=== PATIENT | male | born 1985 | race Caucasian/White ===

== ENCOUNTER 2016-12-21 16:18 | Emergency (ER) | payer BC ==
--- NOTE | 2016-12-21 16:54 | ERPHSYRPT ---
- History of Present Illness Time Seen by Provider: 12/21/16 16:48 Source: patient Exam Limitations: no limitations Patient Subjective Stated Complaint: Pt states "I woke up this morning and the back of my throat hurts, up near my nose." Triage Nursing Assessment: pt alert and oriented X 3, skin pwd pt speaking clearly, sounds like nose is congested, walks upright without any difficulty. Physician History: The patient is a 31-year-old male who woke up this morning with a sore throat. He denies fever or chills. He denies cough. 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 He wants a work excuse for today. His past medical history is significant for a staph infection. Timing/Duration: gradual onset Severity: moderate ENT Location: throat Prearrival Treatment: no prearrival treatment Modifying Factors: Improves With: activity Associated Symptoms: sore throat, voice change, No fever Allergies/Adverse Reactions: No Known Drug Allergies Allergy (Unverified 12/21/16 16:31) Home Medications: No Reportable Medications [No Reported Medications] 12/21/16 [History] Hx Tetanus, Diphtheria Vaccination/Date Given: Yes Hx Influenza Vaccination/Date Given: No Hx Pneumococcal Vaccination/Date Given: No Immunizations Up to Date: Yes - Review of Systems Constitutional: No Fever, No Chills Eyes: No Symptoms Ears, Nose, & Throat: Throat Pain, Hoarse Respiratory: No Cough, No Dyspnea Cardiac: No Chest Pain, No Edema, No Syncope Abdominal/Gastrointestinal: No Abdominal Pain, No Nausea, No Vomiting, No Diarrhea Genitourinary Symptoms: No Dysuria Musculoskeletal: No Back Pain, No Neck Pain Skin: No Rash Neurological: No Dizziness, No Focal Weakness, No Sensory Changes Psychological: No Symptoms Endocrine: No Symptoms Hematologic/Lymphatic: No Symptoms Immunological/Allergic: No Symptoms All Other Systems: Reviewed and Negative - Past Medical History Pertinent Past Medical History: No - Past Surgical History Past Surgical History: Yes Neuro Surgical History: No Pertinent History Cardiac: No Pertinent History Respiratory: No Pertinent History Gastrointestinal: No Pertinent History Genitourinary: No Pertinent History Musculoskeletal: Other Male Surgical History: No Pertinent History Other Surgical History: left ankle surgery - Social History Smoking Status: Current every day smoker How long have you smoked: years Exposure to second hand smoke: Yes Drug Use: none Patient Lives Alone: No - Nursing Vital Signs Nursing Vital Signs: Initial Vital Signs Temperature 99.1 F 12/21/16 16:24 Pulse Rate 80 12/21/16 16:24 Respiratory Rate 18 12/21/16 16:24 Blood Pressure 136/71 12/21/16 16:24 O2 Sat by Pulse Oximetry 97 12/21/16 16:24 Pain Scale Pain Intensity 4 - Physical Exam General Appearance: no apparent distress, alert Eye Exam: bilateral eye: PERRL, EOMI Nasal Exam: normal inspection Throat Exam: moist mucus membranes, pharynx swelling, No tonsillar exudate Neck Exam: supple Cardiovascular/Respiratory Exam: normal breath sounds, regular rate/rhythm Abdominal Exam: non-tender, soft Neurologic Exam: alert, oriented x 3, sensation nml, No motor deficits Skin Exam: normal color, warm, dry SpO2: 97 Oxygen Delivery: Room Air Ordered Tests: Active Orders 24 hr Category Date Time Status CULTURE, THROAT Stat Lab 12/21/16 17:18 Received STREP SCREEN-BETA A Stat Lab 12/21/16 17:18 Completed Lab/Rad Data: Laboratory Results 12/21/16 Range/Units 17:18 Streptococcus Screen NEGATIVE (Negative) - Progress Progress: unchanged Counseled pt/family regarding: lab results, diagnosis - Departure Time of Disposition: 17:28 Departure Disposition: Home Clinical Impression: Pharyngitis Condition: Stable Critical Care Time: No Additional Instructions: You have viral pharyngitis. The rapid strep test was negative in the ER. Take Tylenol and ibuprofen as needed. Follow-up as needed.
[2016-12-21 17:20] VITALS: BP 102/68; PULSE 64
[2016-12-21 17:30] VITALS: O2SAT 97
== END 2016-12-21 17:34 | disposition home or self-care (01) ==
LOC: ED 16:18
DX: J02.9 Acute pharyngitis, unspecified (principal)
CPT/HCPCS: 87070; 87430; 99282

== ENCOUNTER 2017-06-27 21:55 | Emergency (ER) | payer SELFPAY ==
[2017-06-27] MEDS ORDERED: TORAdol 30 mg Injection IM ONE (22:25)
--- NOTE | 2017-06-27 22:25 | ERPHSYRPT ---
- History of Present Illness Time Seen by Provider: 06/27/17 22:15 Source: patient Exam Limitations: no limitations Physician History: The patient is a 32-year-old male with his complaining of intermittent pain in his left TMJ since last or 4 days ago. He had pain on but the pain resolved until Tuesday. It then resolved again until today. He has taken nothing for the pain. He denies any recent trauma. It hurts to open his mouth widely and to close it hard on food. He has no local doctor. His past medical history is unremarkable. He takes no medicines. Timing/Duration: day(s) (4), intermittent, worse Severity: moderate Modifying Factors: Improves With: eating, movement Associated Symptoms: denies symptoms Allergies/Adverse Reactions: No Known Drug Allergies Allergy (Verified 06/27/17 22:20) Hx Tetanus, Diphtheria Vaccination/Date Given: Yes Hx Influenza Vaccination/Date Given: No Hx Pneumococcal Vaccination/Date Given: No - Review of Systems Constitutional: No Fever, No Chills Eyes: No Symptoms Ears, Nose, & Throat: Other (jaw pain) Respiratory: No Cough, No Dyspnea Cardiac: No Chest Pain, No Edema, No Syncope Abdominal/Gastrointestinal: No Abdominal Pain, No Nausea, No Vomiting, No Diarrhea Genitourinary Symptoms: No Dysuria Musculoskeletal: No Back Pain, No Neck Pain Skin: No Rash Neurological: No Dizziness, No Focal Weakness, No Sensory Changes Psychological: No Symptoms Endocrine: No Symptoms Hematologic/Lymphatic: No Symptoms Immunological/Allergic: No Symptoms All Other Systems: Reviewed and Negative - Past Medical History Pertinent Past Medical History: No - Past Surgical History Past Surgical History: Yes Neuro Surgical History: No Pertinent History Cardiac: No Pertinent History Respiratory: No Pertinent History Gastrointestinal: No Pertinent History Genitourinary: No Pertinent History Musculoskeletal: Other Male Surgical History: No Pertinent History Other Surgical History: left ankle surgery - Social History Smoking Status: Current every day smoker How long have you smoked: years Exposure to second hand smoke: Yes Drug Use: none Patient Lives Alone: No - Nursing Vital Signs Nursing Vital Signs: Initial Vital Signs Temperature 99.0 F 06/27/17 22:07 Pulse Rate 60 06/27/17 22:07 Respiratory Rate 16 06/27/17 22:07 Blood Pressure 117/75 06/27/17 22:07 O2 Sat by Pulse Oximetry 99 06/27/17 22:07 Pain Scale Pain Intensity 3 - Physical Exam General Appearance: no apparent distress, alert Eye Exam: PERRL/EOMI, eyes nml inspection Ears, Nose, Throat Exam: other (tenderness to palpation and movement of left TMJ. Very poor dentition.) Neck Exam: normal inspection, non-tender, supple, full range of motion Respiratory Exam: normal breath sounds, lungs clear, No respiratory distress Cardiovascular Exam: regular rate/rhythm, normal heart sounds, normal peripheral pulses Gastrointestinal/Abdomen Exam: soft, normal bowel sounds, No tenderness, No mass Rectal Exam: not done Back Exam: normal inspection, normal range of motion, No CVA tenderness, No vertebral tenderness Extremity Exam: normal inspection, normal range of motion, pelvis stable Neurologic Exam: alert, oriented x 3, cooperative, normal mood/affect, nml cerebellar function, nml station & gait, sensation nml, No motor deficits Skin Exam: normal color, warm, dry, No rash Lymphatic Exam: No adenopathy SpO2 Interpretation: normal - Radiology Exams Left Other X-ray Interpretation: Interpreted by me, Negative (negative left TMJ) Ordered Tests: Active Orders 24 hr Category Date Time Status TMJ Stat Exams 06/27/17 22:48 Taken Medication Summary Discontinued Medications Generic Name Dose Route Start Last Admin Trade Name Aníbalq PRN Reason Stop Dose Admin Ketorolac Tromethamine 60 mg 06/27/17 22:25 06/27/17 22:32 Toradol 30 Mg Injection IM 06/27/17 22:26 60 mg STAT ONE Administration Ketorolac Tromethamine Confirm 06/27/17 22:30 Toradol 30 Mg Injection Administered 06/27/17 22:31 Dose 60 mg .ROUTE .STReasult-MED ONE - Progress Counseled pt/family regarding: rad results - Departure Time of Disposition: 22:59 Departure Disposition: Home Clinical Impression: Temporomandibular joint (TMJ) pain Condition: Stable Critical Care Time: No Referrals: GISELLE LARES [Primary Care Provider] - Additional Instructions: You have inflammation of your left TMJ. You were given Toradol 60 mg by IM in the ER. Continue therapy with naproxen 500 mg 2 times a day as needed. Follow- up this week with a dentist. Prescriptions: Naproxen 500 mg PO BID PRN #30 tablet.
[2017-06-27] MEDS ORDERED: TORAdol 30 mg Injection ONE (22:30)
[2017-06-27 23:15] VITALS: BP 118/74; PULSE 61; O2SAT 98
--- NOTE | 2017-06-28 08:48 | XRAY ---
Indication: Left jaw pain. No known injury. Comparison: None Bilateral TMJ images obtained with mouth open/closed demonstrates normal bilateral mandible condyle motion. No bony, articular, or soft tissue abnormalities.
== END 2017-06-27 23:15 | disposition home or self-care (01) ==
LOC: ED 21:55
DX: M26.622 Arthralgia of left temporomandibular joint (principal)
CPT/HCPCS: 70328; 96372; 99283; 99284; J1885

== ENCOUNTER 2017-09-30 10:39 | Emergency (ER) | payer SELFPAY ==
[2017-09-30 10:59] VITALS: BP 129/67; PULSE 71; O2SAT 98
--- NOTE | 2017-09-30 11:11 | ERPHSYRPT ---
- History of Present Illness Time Seen by Provider: 09/30/17 10:52 Source: patient Exam Limitations: no limitations Physician History: The patient is a 32-year-old male with his complaining that he found a tick on his abdomen while at [facility] just prior to arrival. He did not notice the tick last night. He tried to pull the tick out of his skin but was unable to. Timing/Duration: today Quality: itchy Severity: mild Location: torso (abdomen) Possible Causes: other (tick) Associated Symptoms: denies symptoms Allergies/Adverse Reactions: doxycycline Allergy (Verified 09/30/17 10:49) Hx Tetanus, Diphtheria Vaccination/Date Given: Yes Hx Influenza Vaccination/Date Given: No Hx Pneumococcal Vaccination/Date Given: No - Review of Systems Constitutional: No Fever, No Chills Eyes: No Symptoms Ears, Nose, & Throat: No Symptoms Respiratory: No Cough, No Dyspnea Cardiac: No Chest Pain, No Edema, No Syncope Abdominal/Gastrointestinal: No Abdominal Pain, No Nausea, No Vomiting, No Diarrhea Genitourinary Symptoms: No Dysuria Musculoskeletal: No Back Pain, No Neck Pain Skin: Other (embedded tick), No Rash Neurological: No Dizziness, No Focal Weakness, No Sensory Changes Psychological: No Symptoms Endocrine: No Symptoms Hematologic/Lymphatic: No Symptoms Immunological/Allergic: No Symptoms All Other Systems: Reviewed and Negative - Past Medical History Pertinent Past Medical History: No - Past Surgical History Past Surgical History: Yes Neuro Surgical History: No Pertinent History Cardiac: No Pertinent History Respiratory: No Pertinent History Gastrointestinal: No Pertinent History Genitourinary: No Pertinent History Musculoskeletal: Other Male Surgical History: No Pertinent History Other Surgical History: left ankle surgery - Social History Smoking Status: Current every day smoker How long have you smoked: years Exposure to second hand smoke: Yes Drug Use: none Patient Lives Alone: No - Physical Exam General Appearance: no apparent distress, alert Eye Exam: PERRL/EOMI, eyes nml inspection Ears, Nose, Throat Exam: normal ENT inspection, pharynx normal, moist mucous membranes Neck Exam: normal inspection, non-tender, supple, full range of motion Respiratory Exam: normal breath sounds, lungs clear, No respiratory distress Cardiovascular Exam: regular rate/rhythm, normal heart sounds Gastrointestinal/Abdomen Exam: soft, mass, No tenderness Rectal Exam: not done Back Exam: normal inspection, normal range of motion, No CVA tenderness, No vertebral tenderness Extremity Exam: normal inspection, normal range of motion Neurologic Exam: alert, oriented x 3, cooperative, normal mood/affect, sensation nml, No motor deficits Skin Exam: other (A nymphal stage Amblyomma gibraltarian tick was removed from the pt's skin just inferior to the umbilcus. Tiny amount of erythema. The tick was unengorged.) SpO2 Interpretation: normal - Progress Progress: improved - Departure Time of Disposition: 11:18 Departure Disposition: Home Clinical Impression: Tick bite with subsequent removal of tick Condition: Stable Critical Care Time: No Referrals: GISELLE LARES [Primary Care Provider] - Additional Instructions: You had a tick embedded in your abdominal skin. It was removed intact. You may experience some redness and even some hardness to the skin over the next few days. The redness and hardness should remain very localized to the bite. If you experience any flulike symptoms and fever, please visit your primary medical doctor.
== END 2017-09-30 11:29 | disposition home or self-care (01) ==
LOC: ED 10:39
DX: S30.861A Insect bite (nonvenomous) of abdominal wall, initial encounter (principal); W57.XXXA Bitten or stung by nonvenomous insect and other nonvenomous arthropods, initial encounter
CPT/HCPCS: 99283

== ENCOUNTER 2019-01-02 10:00 | Emergency (ER) | payer MEDICAID ==
[2019-01-02 10:15] VITALS: O2SAT 96
--- NOTE | 2019-01-02 10:54 | ERPHSYRPT ---
- History of Present Illness Time Seen by Provider: 01/02/19 10:30 Source: patient Exam Limitations: no limitations Patient Subjective Stated Complaint: pt stated that he woke up this morning with pain to the top of the left foot, pt stated that he had surgery on the foot 6 years prior, pt states he has no problem with it until today, pt states 5 /10 pain, pt states the tendon on the top of his foot hurts Triage Nursing Assessment: pt ambulated into the ER with c/o of pain to the left foot, left foot has trace amount of edema, tender to the touch, pulses positive, cap refil normal, vitals wnl, pain 5/10 Physician History: 33 y/o white male presents with 3 day h/o left ant ankle sharp pain. pt denies injury. hurts worse in the mornings and improves as day progresses. however, today pain bad enough to leave work to have it evaluatated. never had before Method of Injury: unknown Occurred: days ago (3) Severity of Pain-Max: moderate Severity of Pain-Current: moderate Lower Extremities Pain: ankle: left Modifying Factors: Improves With: movement (worsens), other (elevation improves) Allergies/Adverse Reactions: doxycycline Allergy (Verified 01/02/19 10:15) Hx Tetanus, Diphtheria Vaccination/Date Given: Yes Hx Influenza Vaccination/Date Given: No Hx Pneumococcal Vaccination/Date Given: No Immunizations Up to Date: Yes - Review of Systems Constitutional: No Symptoms Eyes: No Symptoms Ears, Nose, & Throat: No Symptoms Respiratory: No Symptoms Cardiac: No Symptoms Abdominal/Gastrointestinal: No Symptoms Genitourinary Symptoms: No Symptoms Musculoskeletal: No Symptoms, Other (tenderness axially along lower tibia and prox ant left foot) Skin: No Symptoms Neurological: No Symptoms Psychological: No Symptoms Endocrine: No Symptoms Hematologic/Lymphatic: No Symptoms Immunological/Allergic: No Symptoms All Other Systems: Reviewed and Negative - Past Medical History Pertinent Past Medical History: No Neurological History: No Pertinent History ENT History: No Pertinent History Cardiac History: No Pertinent History Respiratory History: No Pertinent History Endocrine Medical History: No Pertinent History Musculoskeletal History: No Pertinent History GI Medical History: No Pertinent History History: No Pertinent History Psycho-Social History: No Pertinent History Male Reproductive Disorders: No Pertinent History - Past Surgical History Past Surgical History: Yes Neuro Surgical History: No Pertinent History Cardiac: No Pertinent History Respiratory: No Pertinent History Gastrointestinal: No Pertinent History Genitourinary: No Pertinent History Musculoskeletal: Other Male Surgical History: No Pertinent History Other Surgical History: left ankle surgery - Social History Smoking Status: Light tobacco smoker How long have you smoked: years Exposure to second hand smoke: Yes Drug Use: none Patient Lives Alone: No - Nursing Vital Signs Nursing Vital Signs: Initial Vital Signs Temperature 97.9 F 01/02/19 10:04 Pulse Rate 60 01/02/19 10:04 Respiratory Rate 18 01/02/19 10:04 Blood Pressure 137/66 01/02/19 10:04 O2 Sat by Pulse Oximetry 96 01/02/19 10:04 Pain Scale Pain Intensity 5 - Physical Exam General Appearance: no apparent distress, alert, anxiety Eyes, Ears, Nose, Throat Exam: normal ENT inspection Neck Exam: normal inspection, non-tender, supple, full range of motion Cardiovascular/Respiratory Exam: chest non-tender Gastrointestinal/Abdominal Exam: non-tender Back Exam: normal inspection, normal range of motion, No CVA tenderness, No vertebral tenderness Hips Exam: bilateral: non-tender, normal inspection, normal range of motion, no evidence of injury Legs Exam: bilateral leg: non-tender, normal inspection, normal range of motion , no evidence of injury Knees Exam: bilateral knee: non-tender, normal inspection, normal range of motion, no evidence of injury Ankle Exam: right ankle: non-tender, left ankle: normal inspection, normal range of motion, no evidence of injury, soft tissue tenderness Foot Exam: bilateral foot: non-tender, normal inspection, normal range of motion , no evidence of injury Neuro/Tendon Exam: normal sensation, normal motor functions, normal tendon functions, responds to pain Mental Status Exam: alert, oriented x 3, cooperative Skin Exam: normal color, warm, dry SpO2 Interpretation: normal SpO2: 96 O2 Delivery: Room Air - Course Nursing assessment & vital signs reviewed: Yes - Progress Progress: unchanged Progress Note: 01/02/19 10:55 i offered pt xray. he declined. Counseled pt/family regarding: diagnosis, need for follow-up - Departure Departure Disposition: Home Clinical Impression: Left ankle pain Condition: Stable Critical Care Time: No Referrals: GISELLE SILVESTRE [Primary Care Provider] - Additional Instructions: ice pack to area 3 times daily for 3 days. elevate left leg above your heart. follow up with dr. silvestre for further management Forms: Work/School Release Form Prescriptions: Carisoprodol 350 mg [Soma 350 mg] 350 mg PO Q8H PRN PRN #10 tablet PRN Reason: Muscle Spasms Prednisone 10 mg [Deltasone 10 mg] 10 mg PO TID #12 tablet
[2019-01-02 10:57] VITALS: BP 111/63; PULSE 61
== END 2019-01-02 11:37 | disposition home or self-care (01) ==
LOC: ED 10:00
DX: M25.572 Pain in left ankle and joints of left foot (principal)
CPT/HCPCS: 99283

== ENCOUNTER 2019-02-15 07:14 | Emergency (ER) | payer SELFPAY ==
[2019-02-15] MEDS ORDERED: DELTASONE 20 MG PO ONE (07:26)
[2019-02-15] MEDS ORDERED: Rocephin 1000 MG INJ IM ONE (07:26)
[2019-02-15] MEDS ORDERED: Rocephin 1000 MG INJ ONE (07:28)
[2019-02-15] MEDS ORDERED: DELTASONE 20 MG ONE (07:28)
--- NOTE | 2019-02-15 07:28 | ERPHSYRPT ---
- History of Present Illness Time Seen by Provider: 02/15/19 07:21 Source: patient Exam Limitations: no limitations Patient Subjective Stated Complaint: Pt not feeling good for a couple days, 104 fever last night and took Nyquil, temp 104.5 upon waking up, temp in ER 102.5, achy, coughing, headache, dizziness, sorethroat Triage Nursing Assessment: Pt walked into the ER, febrile, pulses normal, lungs clear, non productive cough, rates generalized pain at 3/10 Physician History: patient is sick for last 3 days. It started with bodyache and generalized weakness 3 days ago. He started having fever yesterday. Also has a sore throat , cough weakness minimal sputum. Timing/Duration: day(s) (3) Cough Quality/Degree: moderate, productive cough Possible Cause: occasional episodes Modifying Factors: Improves With: coughing Associated Symptoms: fever, chills, cough, muscle aches, sore throat, No chest pain/soreness, No earache, No headache, No lightheadedness, No nasal congestion , No nasal drainage International travel in last 2 weeks: No Allergies/Adverse Reactions: doxycycline Allergy (Verified 02/15/19 07:27) Hx Tetanus, Diphtheria Vaccination/Date Given: Yes Hx Influenza Vaccination/Date Given: No Hx Pneumococcal Vaccination/Date Given: No - Review of Systems Constitutional: Fever, Chills, Fatigue, Malaise Eyes: No Symptoms Ears, Nose, & Throat: Throat Pain Respiratory: Cough, No Dyspnea Cardiac: No Chest Pain, No Edema, No Syncope Abdominal/Gastrointestinal: No Abdominal Pain, No Nausea, No Vomiting, No Diarrhea Genitourinary Symptoms: No Dysuria Musculoskeletal: No Back Pain, No Neck Pain Skin: No Rash Neurological: No Dizziness, No Focal Weakness, No Sensory Changes Psychological: No Symptoms Endocrine: No Symptoms All Other Systems: Reviewed and Negative - Past Medical History Pertinent Past Medical History: No Neurological History: No Pertinent History ENT History: No Pertinent History Cardiac History: No Pertinent History Respiratory History: No Pertinent History Endocrine Medical History: No Pertinent History Musculoskeletal History: No Pertinent History GI Medical History: No Pertinent History History: No Pertinent History Psycho-Social History: No Pertinent History Male Reproductive Disorders: No Pertinent History - Past Surgical History Past Surgical History: Yes Neuro Surgical History: No Pertinent History Cardiac: No Pertinent History Respiratory: No Pertinent History Gastrointestinal: No Pertinent History Genitourinary: No Pertinent History Musculoskeletal: Other Male Surgical History: No Pertinent History Other Surgical History: left ankle surgery - Social History Smoking Status: Current some day smoker How long have you smoked: years Exposure to second hand smoke: Yes Drug Use: none Patient Lives Alone: No - Nursing Vital Signs Nursing Vital Signs: Initial Vital Signs Temperature 102.5 F 02/15/19 07:18 Pulse Rate 95 H 02/15/19 07:18 Blood Pressure 141/74 02/15/19 07:18 O2 Sat by Pulse Oximetry 97 02/15/19 07:18 Pain Scale Pain Intensity 3 - Physical Exam General Appearance: no apparent distress, alert, other (Febrile, nontoxic) Eye Exam: PERRL/EOMI, eyes nml inspection Ears, Nose, Throat Exam: pharynx normal, moist mucous membranes, TM abnormal (R ) (erythema), TM abnormal (L) (erythema), pharyngeal erythema, No dry mucous membranes Neck Exam: normal inspection, non-tender, supple, full range of motion Respiratory Exam: normal breath sounds, lungs clear, airway intact, No respiratory distress, No diminished breath sounds Cardiovascular Exam: regular rate/rhythm, normal heart sounds, normal peripheral pulses Gastrointestinal/Abdomen Exam: soft, No tenderness Back Exam: normal inspection, No CVA tenderness, No vertebral tenderness Extremity Exam: normal inspection, normal range of motion Neurologic Exam: alert, oriented x 3, cooperative, normal mood/affect, sensation nml, No motor deficits Skin Exam: normal color, warm, dry, No rash Lymphatic Exam: No adenopathy SpO2 Interpretation: normal SpO2: 97 (Normal) O2 Delivery: Room Air - Course Nursing assessment & vital signs reviewed: Yes Ordered Tests: Medication Summary Discontinued Medications Generic Name Dose Route Start Last Admin Trade Name Freq PRN Reason Stop Dose Admin Ceftriaxone Sodium 1,000 mg 02/15/19 07:26 Rocephin 1000 Mg Inj IM 02/15/19 07:27 STAT ONE Prednisone 20 mg 02/15/19 07:26 Deltasone 20 Mg PO 02/15/19 07:27 STAT ONE - Progress Progress: unchanged Air Movement: good Progress Note: 02/15/19 07:33 no life or limb threatening condition on discharge Blood Culture(s) Obtained: No Antibiotics given: Yes Counseled pt/family regarding: diagnosis, need for follow-up - Departure Departure Disposition: Home Clinical Impression: Acute bilateral otitis media Acute pharyngitis Qualifiers: Pharyngitis/tonsillitis etiology: unspecified etiology Qualified Code(s): J02.9 - Acute pharyngitis, unspecified Acute bronchitis Qualifiers: Bronchitis organism: unspecified organism Qualified Code(s): J20.9 - Acute bronchitis, unspecified Condition: Good Critical Care Time: No Referrals: GISELLE LARES [Primary Care Provider] - Instructions: Fever, Adult (DC), Sore Throat, Adult (DC), Acute Bronchitis, Adult (DC), Ear Infections (Otitis Media) (DC) Forms: Work/School Release Form Prescriptions: Amoxicillin 500 mg PO TID 7 Days #21 tablet
[2019-02-15 07:59] VITALS: BP 99/58; PULSE 87; O2SAT 98
== END 2019-02-15 07:55 | disposition home or self-care (01) ==
LOC: ED 07:14
DX: J02.9 Acute pharyngitis, unspecified (principal); H66.93 Otitis media, unspecified, bilateral
CPT/HCPCS: 96372; 99283; J0696; A9270-GY

== ENCOUNTER 2019-03-04 23:46 | Emergency (ER) | payer MEDICAID ==
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
[2019-03-04] MEDS ORDERED: Sodium Chloride 0.9% 1000 ML 1,000 ML IV STA (23:57)
[2019-03-04] MEDS ORDERED: ROCEPHIN 1 Gm-D5w 50 ml Bag** 1 G/50 ML IVPB IV STA (23:58)
[2019-03-04] MEDS ORDERED: Zofran 4 MG/2 ML VIAL IV ONE (23:58)
[2019-03-04] MEDS ORDERED: Hydromorphone 1 mg/ml Ampule IV ONE (23:59)
[2019-03-05] MEDS ORDERED: ROCEPHIN 1 Gm-D5w 50 ml Bag** 1 G/50 ML IVPB IV ONE (00:22)
[2019-03-05] MEDS ORDERED: Hydromorphone 1 mg/ml Ampule ONE (00:22)
[2019-03-05] MEDS ORDERED: Sodium Chloride 0.9% 1000 ML 1,000 ML ONE (00:22)
[2019-03-05] MEDS ORDERED: Zofran 4 MG/2 ML VIAL ONE (00:22)
[2019-03-05 00:27] LABS: Absolute Neutrophil Ct (ANC) 3.95 (1.4-6.9); BASOPHIL % 0.4 % (0.0-0.4); Basophil (Absolute #) 0.03 (0-0.4); Eosinophil % 3.5 % (0.00-5.0); Eosinophil (Absolute #) 0.27 (0-0.5); Hematocrit 40.9 % (42-50); Hemoglobin 13.5 gm/dl (12.5-18.0); Lymphocytes % 32.7 % (24.0-44.0); Mean Cell Volume 91.1 fl (78-100); Mean Corpuscular Hemoglobin 30.1 pg (26-32); Mean Platelet Volume 9.8 fl (6-9.5); Monocytes % 11.8 % (0.0-12.0); Neutrophil % 51.6 % (36.0-66.0); Platelet Count 366 K/mm3 (150-450); Red Blood Count 4.49 M/mm3 (4.1-5.6); Red Cell Distribution Width 13.6 % (11.5-14.0); White Blood Count 7.7 K/mm3 (4.0-10.5)
[2019-03-05 00:46] LABS: ALBUMIN 4.4 g/dL (3.5-5.0); ALKALINE PHOSPHATASE 63 U/L (38-126); ANION GAP 15.4 MEQ/L (5-15); BLOOD UREA NITROGEN 17 mg/dL (9-20); CHLORIDE 104 mmol/L (98-107); Calcium 9.3 mg/dL (8.4-10.2); Carbon Dioxide 26 mmol/L (22-30); Creatinine 1 0.99 mg/dL (0.66-1.25); Glucose 110 mg/dL (74-106); MAGNESIUM 1.9 mg/dL (1.6-2.3); Potassium 3.5 mmol/L (3.5-5.1); SGOT/AST 28 U/L (17-59); SGPT/ALT 34 U/L (0-50); SODIUM 142 mmol/L (137-145); Total Protein 8.5 g/dL (6.3-8.2)
[2019-03-05] MEDS ORDERED: BACIGUENT PACKET ONE ×2 (03:48→04:03)
[2019-03-05] MEDS ORDERED: BACIGUENT PACKET TP ONE (03:58)
[2019-03-05 04:35] VITALS: BP 94/60; PULSE 66; O2SAT 97
== END 2019-03-05 04:35 | disposition home or self-care (01) ==
LOC: ED 23:46
DX: T75.4XXA Electrocution, initial encounter (principal); W86.0XXA Exposure to domestic wiring and appliances, initial encounter; S60.812A Abrasion of left wrist, initial encounter; S60.512A Abrasion of left hand, initial encounter; Y93.9 Activity, unspecified; R07.89 Other chest pain
CPT/HCPCS: 36000; 36415; 80053; 82550; 83735; 84484; 85025; 93005; 93041; 94760; 96360; 96365; 96374; 96375; 99285; J0696; J1170; J2405; A9270-GY